=== PATIENT | male | born 1980 | race Caucasian/White ===

== ENCOUNTER 2018-09-01 10:36 | Emergency (ER) | payer OTHER ==
[2018-09-01 11:16] VITALS: BP 143/79
[2018-09-01 11:51] LABS: Influenza B Molecular POSITIVE (Negative)
--- NOTE | 2018-09-01 12:06 | UC ---
FLU HPI - HPI Summary HPI Summary: Flu like symptoms with fever and body aches for about 4 days. No infants or elderly at home. he has received the flu shot. No illnesses or lung disease. - History of Current Complaint Chief Complaint: UCRespiratory Stated Complaint: BODY ACHES, SORE THROAT, POOR APPETITE Time Seen by Provider: 09/01/18 11:54 Hx Obtained From: Patient Onset/Duration: Gradual Onset, Lasting Days Severity Currently: Moderate Severity Initially: Mild Pain Intensity: 6 Associated Signs & Symptoms: Positive: Fever, Myalgia, Nasal Congestion. Negative: Vomiting, Diarrhea - Allergy/Home Medications Allergies/Adverse Reactions: Allergies Allergy/AdvReac Type Severity Reaction Status Date / Time No Known Allergies Allergy Verified 09/01/18 11:16 Home Medications: Home Medications Ibuprofen 400 mg PO 09/01/18 [History] Oxymetazoline 0.05% NASAL SPR* [Afrin 0.05% NASAL SPRAY*] 1 spray NASAL Q12H PRN 09/01/18 [History Confirmed 09/01/18] PMH/Surg Hx/FS Hx/Imm Hx Previously Healthy: Yes - Surgical History Surgical History: None - Family History Known Family History: Positive: Non-Contributory - Social History Occupation: Employed Full-time Lives: With Family Alcohol Use: None Substance Use Type: None Smoking Status (MU): Never Smoked Tobacco Review of Systems All Other Systems Reviewed And Are Negative: Yes Constitutional: Positive: Fever ENT: Positive: Sinus Congestion Musculoskeletal: Positive: Myalgia Physical Exam Triage Information Reviewed: Yes Appearance: Well-Appearing, No Pain Distress, Well-Nourished Vital Signs: Initial Vital Signs Temp 98.9 F 09/01/18 11:14 Pulse 84 09/01/18 11:14 Resp 18 09/01/18 11:14 BP 143/79 09/01/18 11:14 Pulse Ox 96 09/01/18 11:14 Vital Signs Reviewed: Yes Eyes: Positive: Conjunctiva Clear. Negative: Conjunctiva Inflamed ENT: Positive: Normal ENT inspection, Hearing grossly normal, Pharynx normal, Nasal congestion, TMs normal, Uvula midline. Negative: Pharyngeal erythema, Nasal drainage, TM bulging, TM dull, TM red, Tonsillar swelling, Tonsillar exudate, Trismus, Sinus tenderness Neck: Positive: Supple, Nontender, No Lymphadenopathy Respiratory: Positive: Lungs clear, Normal breath sounds, No respiratory distress, No accessory muscle use. Negative: Respiratory distress, Decreased breath sounds, Accessory muscle use, Crackles, Rhonchi, Stridor, Wheezing Cardiovascular: Positive: No Murmur, Pulses Normal. Negative: Brisk Capillary Refill Abdomen Description: Positive: No Organomegaly, Soft. Negative: Distended, Guarding Musculoskeletal: Positive: Strength Intact, ROM Intact, No Edema Neurological: Positive: Alert, Muscle Tone Normal. Negative: Fatigued Psychological: Positive: Age Appropriate Behavior Skin: Negative: Rashes Flu Course/Dx - Course Course Of Treatment: supportive care described in detail. Low risk for complications. - Differential Dx/Diagnosis Provider Diagnosis: Influenza A Discharge - Sign-Out/Discharge Documenting (check all that apply): Patient Departure All imaging exams completed and their final reports reviewed: No Studies - Discharge Plan Condition: Good Disposition: HOME Patient Education Materials: Influenza (ED) Referrals: No Primary Care Phys,NOPCP [Primary Care Provider] - - Billing Disposition and Condition Condition: GOOD Disposition: Home
== END 2018-09-01 12:07 | disposition home or self-care (01) ==
LOC: UCCORT 10:36
DX: J10.1 Influenza due to other identified influenza virus with other respiratory manifestations (principal)
CPT/HCPCS: 99201; G0463